=== PATIENT | female | born 1985 | race Two or more races ===

== ENCOUNTER 2019-12-02 12:51 | Observation (INO) | payer MEDICAID ==
[~2019-12-02] VITALS: Ht 157.5 cm; Wt 63.5 kg
[2019-12-02 12:57] VITALS: BP 103/69
== END 2019-12-02 14:39 | disposition home or self-care (01) ==
LOC: ER 12:51 → EDBD 12:51 → LDRP 13:14 → ER 13:23 → LDRP 13:40
PROVIDERS: ADMIT Specialist; ATTEND Specialist
DX: O26.813 Pregnancy related exhaustion and fatigue, third trimester (principal); R55 Syncope and collapse; Z3A.28 28 weeks gestation of pregnancy
CPT/HCPCS: 59025; 81002; 99284; G0378